=== PATIENT | female | born 1970 | race Caucasian/White ===

== ENCOUNTER → 2022-10-15 11:02 | Outpatient (CLI) | payer OTHER, SELFPAY ==
--- NOTE | 2022-10-15 | DI.MRI.S_ITS ---
PROCEDURE: MR BRAIN (IAC) WWO CON INDICATIONS: Sensorineural hearing loss, bilateral TECHNIQUE: Noncontrast sagittal T1 spin echo, axial FLAIR, axial gradient echo, axial diffusion and ADC through the brain. Axial thin-slice 3D CISS, coronal TruFISP, axial T1 spin echo with fat saturation through the internal auditory canals. After the administration of contrast, thin slice axial and coronal T1 spin echo with fat saturation through the internal auditory canals, and axial and coronal and sagittal T1 spin echo with fat saturation through the brain. COMPARISON: None. FINDINGS: Image quality: Excellent. Cerebellopontine angles: No cerebellopontine angle masses. Inner ear structures appear normally formed. No suspicious enhancement in the internal auditory canal or along the course of the 7th cranial nerve. CSF spaces: Ventricles are normal in size and shape. No extra-axial fluid collections. Basal cisterns are patent. Brain: No intracranial bleeds or mass effects. Robles-white matter interface is intact. No abnormal intracranial enhancement. Diffusion weighted images demonstrate no acute ischemic insults. Brainstem appears normal. Normal intravascular flow voids are present. Skull and face: Calvarial marrow signal is normal. Orbits appear normal. Sinuses: Sinuses and mastoids are clear. IMPRESSION: No significant abnormality is seen. Specifically, no masses or abnormal enhancement are seen within the cerebellopontine angle cisterns or within the internal auditory canals. Dictated by: Raul Garza M.D. on 10/15/2022 at 11:48 Approved by: Raul Garza M.D. on 10/15/2022 at 11:48
== END ==
PROVIDERS: PCP Student in an Organized Health Care Education/Training Program; Referring Provider Otolaryngology; Visit Provider Otolaryngology
DX: H90.3 Sensorineural hearing loss, bilateral (principal)
CPT/HCPCS: 70553; A9579

== ENCOUNTER → 2022-11-09 14:12 | Outpatient (CLI) | payer OTHER, SELFPAY ==
--- NOTE | 2022-11-09 | PATH_ITS ---
Note [facility] Accession Number: [id number] TESTS RESULT FLAG UNITS REF RANGE LAB Clinician Provided Cytology Information No. of containers..02 Previously Prepared Cytology Slide 35 Unknown Storage/container code(s) Source: [A] 01 RIGHT SUPERIOR THYROID NODULE (A) DIAGNOSIS: [A] 01 RIGHT SUPERIOR THYROID NODULE (A) SUSPICIOUS FOR MALIGNANCY. BETHESDA CATEGORY V. SUSPICIOUS FOR PAPILLARY CARCINOMA. SPECIMEN CONSISTS OF FOLLICULAR CELLS WITH NUCLEAR ENLARGEMENT, NUCLEAR PALLOR WITH GROOVES. INTRANUCLEAR PSEUDOINCLUSIONS ARE RARE. 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 Pathologist ICD10: 01 R89.6 Signed out by: Michelle Patel MD, Pathologist NPI- [id number] Performed by: Marshall Brown, Shuttle Inspector ([facility]) Gross description: 30 CC, BROWN, CLOUDY RECIEVED: IN CYTOLYT WITH 6 ALCOHOL FIXED AND 6 QUICK STAINED SLIDES ALSO 1 RNA VIAL WAS RECEIVED.VO /VDU 11/12/2022 0559 Local FLAG LEGEND: L-Low Normal,H-High Normal,LL-Alert Low,HH-Alert High <-Panic Low,>-Panic High,A-Abnormal,AA-Critical Abnormal Performed at: 01 [facility] [address], [place] [address] Amaury Ma MD, Performed at: 01 [facility] [address] [place] [address] [address], [place], [place] [id number] MD Amaury Ma MD Phone: [phone]
--- NOTE | 2022-11-09 | PATH_ITS ---
Note [facility] Accession Number: [id number] TESTS RESULT FLAG UNITS REF RANGE LAB Clinician Provided Cytology Information No. of containers..04 Previously Prepared Cytology Slide 35 Unknown Storage/container code(s) Source: RIGHT INFERIOR THYROID NODULE (B) DIAGNOSIS: RIGHT INFERIOR THYROID NODULE (B) INCONCLUSIVE. BETHESDA CATEGORY III. ATYPIA OF UNDETERMINED SIGNIFICANCE. MOLECULAR STUDIES REQUESTED; RESULTS WILL BE REPORTED SEPARATELY. Pathologist ICD10: R89.6 Signed out by: Michelle Patel MD, Pathologist NPI- [id number] Performed by: Marshall Brown, Tooler ([facility]) Gross description: 30 CC, COLORLESS, CLEAR RECIEVED: IN CYTOLYT WITH 2 ALCOHOL FIXED AND 2 QUICK STAINED SLIDES. /VDU 11/12/[address] [place] [address] FLAG LEGEND: L-Low Normal,H-High Normal,LL-Alert Low,HH-Alert High <-Panic Low,>-Panic High,A-Abnormal,AA-Critical Abnormal Performed at: 01 =[facility] [address], [place] [address] Amaury Ma MD, Performed at: 01 [facility] [address], [place], [place] [id number] MD Amaury Ma MD Phone: [phone]
--- NOTE | 2022-11-09 | DI.US.S_ITS ---
PROCEDURE: US FINE NEEDLE ASPIRATION INDICATIONS: NODULES X 2 TECHNIQUE: The indications, alternatives, benefits, risks, and complications of the procedure were explained to the patient. Written informed consent was obtained and placed in the chart. The thyroid region was examined sonographically and a site was chosen for ultrasound guided percutaneous sampling. The skin was prepared and draped in the usual fashion, and anesthetized with 1% lidocaine infiltrated from the skin down to the thyroid gland. Multiple passes were then performed, with contents emptied into an appropriate pathology specimen container. A bandage was applied to the area of access at completion of the study. COMPARISON: None. FINDINGS: Biopsy #1: Location(s) of lesion(s) sampled: Right superior, mixed solid and cystic [place]: 25 gauge hypodermic needles. Number of passes: 6 x 25 g; 1 x 22 g (aspiration) Medications: 1% lidocaine for local anaesthesia. Complications: None. Biopsy #2: Location(s) of lesion(s) sampled: Right inferior [place]: 25 gauge hypodermic needles. Number of passes: 3 Medications: 1% lidocaine for local anaesthesia. Complications: None. IMPRESSION: Successful ultrasound-guided thyroid nodule fine needle aspiration of thyroid nodules, with cytology results pending. Please see chart below for management recommendations based on cytology results. [place] [facility] ReportingRecommendationsNon-diagnostic* Repeat US-guided FNA, with on-site cytology evaluation if possible. * Repeated non-diagnostic nodules without high suspicion US features: close observation vs surgical consult. * Consider surgery if nodule has high suspicion US features, grows >20% in 2 dimensions on followup, or patient has clinical risk factors for malignancy. Benign* If nodule has high suspicion US features: repeat US and FNA within 12 months. * If nodule has low to intermediate suspicion US features: repeat US at 12-24 months. If nodule grows (20% increase in at least 2 dimensions, with minimal increase of 2 mm or >50% change in volume), or development of new suspicious US features, then repeat FNA or continue followup. * If nodule has very low suspicion US features: followup US at >24 months. Atypia of undetermined significance, follicular lesion of undetermined significanceRepeat FNA, molecular testing, followup US, or surgical consult.Follicular neoplasm, suspicious for follicular neoplasmSurgical consult; also consider molecular testing. Suspicious for malignancySurgical consult.MalignantSurgical consult. Dictated by: Shirley Fritz M.D. on 11/09/2022 at 16:20 Approved by: Shirley Fritz M.D. on 11/09/2022 at 16:22
== END ==
PROVIDERS: PCP Student in an Organized Health Care Education/Training Program; Referring Provider Otolaryngology; Visit Provider Otolaryngology
DX: E04.2 Nontoxic multinodular goiter (principal)
CPT/HCPCS: 10005; 10006

== ENCOUNTER → 2022-12-03 11:13 | Outpatient (CLI) | payer OTHER, SELFPAY ==
--- NOTE | 2022-12-03 | DI.US.S_ITS ---
PROCEDURE: US THYROID INDICATIONS: MULTINODULAR THYROID FOLLOW UP TECHNIQUE: Real-time scanning was performed of the thyroid gland, with image documentation. COMPARISON: None. FINDINGS: Right: Thyroid lobe measures 4.3 x 2.5 x 2.8 cm, and is homogeneous in echotexture. Left: Thyroid lobe measures 3.8 x 1.4 x 1.4 cm, and is homogenous in echotexture. Isthmus: 2.3 mm thick. Nodule number: 1 Location: Upper pole right thyroid Size: 3.4 x 2.1 x 1.9 cm, previously 2.5 x 2.2 x 1.7 cm Composition: Predominantly solid Echogenicity: Hypoechoic Shape: Wider than tall Margins: Lobulated Echogenic foci: Punctate and macro calcifications are seen. Total points: 7 ACR TI-RADS category: Highly suspicious Nodule number: 2 Location: Inferior to lower pole of right thyroid Size: 1.6 x 1.3 x 1.2 cm, previously 2 x 1.3 x 1.3 cm in size. Composition: Solid Echogenicity: Hypoechoic Shape: Wider than tall Margins: Irregular Echogenic foci: Macro calcifications Total points: 6 ACR TI-RADS category: Moderately suspicious. Nodule number: 3 Location: Upper pole left thyroid lobe Size: 0.9 x 0.6 x 0.6 cm, previously 0.8 x 0.7 x 0.5 cm Composition: Solid Echogenicity: Hypoechoic Shape: Wider than tall Margins: Smooth Echogenic foci: None Total points: 4 ACR TI-RADS category: Moderately suspicious. Nodule number: 4 Location: Left side of isthmus Size: 0.6 x 0.5 x 0.3 cm, previously 0.6 x 0.4 x 0.2 cm Composition: Predominantly solid Echogenicity: Hypoechoic Shape: Wider than tall Margins: Smooth Echogenic foci: None Total points: 4 ACR TI-RADS category: Moderately suspicious. Nodule number: 5 Location: Right side of isthmus Size 0.6 x 0.5 cm, previously 0.5 x 0.4 cm Composition: Solid Echogenicity: Hypoechoic Shape: Wider than tall Margins: Smooth Echogenic foci: Peripheral calcifications Total points: 6 ACR TI-RADS category: Moderately suspicious. IMPRESSION: 1. Heterogeneous thyroid parenchymal echotexture with multiple bilateral thyroid nodules as described above. Patient's known right upper pole right thyroid lobe nodule has increased in size, please correlate with recent FNA results. ACR TI-RADS definitions and recommendations: TI-RADS 1 (benign): 0 points. FNA not needed. TI-RADS 2 (not suspicious): 2 points. FNA not needed. TI-RADS 3 (mildly suspicious): 3 points. * FNA if 2.5 cm or larger, follow up if 1.5 cm or larger (at 1, 3, and 5 years). TI-RADS 4 (moderately suspicious): 4-6 points. * FNA if 1.5 cm or larger, follow up if 1 cm or larger (at 1, 2, 3, and 5 years). TI-RADS 5 (highly suspicious): 7 points or more. * FNA if 1 cm or larger, follow up if 0.5 cm or larger (every year for 5 years). Dictated by: Zev Yost M.D. on 12/03/2022 at 13:33 Approved by: Zev Yost M.D. on 12/03/2022 at 13:37
== END ==
PROVIDERS: PCP Student in an Organized Health Care Education/Training Program; Referring Provider Otolaryngology; Visit Provider Otolaryngology
DX: E04.1 Nontoxic single thyroid nodule (principal); E04.2 Nontoxic multinodular goiter
CPT/HCPCS: 76536